=== PATIENT | male | born 1955 | race Caucasian/White ===

== ENCOUNTER 2017-02-27 15:19 | Outpatient (CLI) | payer MEDICARE, OTHER ==
--- NOTE | 2017-02-27 18:11 | MRI ---
LUMBAR SPINE MRI NONCONTRAST: Date: 02/27/17 COMPARISON: 07/15/14. INDICATION: Lumbar spondylosis. FINDINGS: Redemonstration of generalized heterogeneity of the regional marrow. No acute marrow edema. Disc spa ce heights are stable and relatively well preserved. No interval compression fracture or acute malal ignment of the lumbar spine. There remains no significant central canal or neural foraminal stenosis at the L1-2 or L2-3 levels. L3-4: Mild disc bulge redemonstrated without significant central canal or neural foraminal stenosis. L4-5: Mild narrowing of central canal on the basis of broad based disc osteophyte complex and bilateral mo derate facet hypertrophy. No significant foraminal stenosis. L5-S1: Small central disc protrusion effaces the ventral thecal sac without high grade central canal stenos is. The neural foramina remain patent. Moderate bilateral facet osteoarthritis is redemonstrated. 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 There is termination of conus medullaris at the L1-2 level. Partially imaged punctate T2 hyperintensity of the hepatic parenchyma is incompletely assessed. IMPRESSION: Grossly stable exam. POS: [facility]
== END 2017-02-27 15:20 | disposition home or self-care (01) ==
LOC: TBSIIMAG 15:19
PROVIDERS: ATTEND Psychiatry & Neurology Neurology
DX: M47.816 Spondylosis without myelopathy or radiculopathy, lumbar region (principal); R20.0 Anesthesia of skin; R29.898 Other symptoms and signs involving the musculoskeletal system
CPT/HCPCS: 72148

== ENCOUNTER 2017-05-01 13:57 | Outpatient (CLI) | payer MEDICARE, OTHER ==
--- NOTE | 2017-05-01 14:35 | RAD ---
RIGHT KNEE 4 VIEWS: HISTORY: Right knee pain. FINDINGS: There are mild degenerative changes. No fracture dislocation or bony destruction is seen. POS: [facility]
--- NOTE | 2017-05-01 14:36 | RAD ---
RIGHT HIP 2 VIEWS: HISTORY: Right hip pain. FINDINGS/IMPRESSION: There are degenerative changes in the right hip joint. No fracture, dislocation, or bone destruction is identified. POS: [facility]
--- NOTE | 2017-05-01 14:38 | RAD ---
LEFT HIP: Indication: Hip pain, knee pain. FINDINGS: There is no evidence of fracture or dislocation. Mild osteoarthritis of the left hip is seen. There a re metallic clips overlying the pelvic soft tissues. IMPRESSION: Mild left hip joint osteoarthritis without acute abnormality evident. POS: [facility]
--- NOTE | 2017-05-01 14:39 | RAD ---
LEFT KNEE FOUR VIEWS: History: Left knee pain. FINDINGS/IMPRESSION: Mild degenerative changes are present. No fracture, dislocation, or bony destruction is identified. POS: [facility]
== END 2017-05-01 13:58 | disposition home or self-care (01) ==
LOC: TBSIIMAG 13:57
PROVIDERS: ATTEND Psychiatry & Neurology Neurology
DX: M25.561 Pain in right knee (principal); M25.562 Pain in left knee; M25.551 Pain in right hip; M25.552 Pain in left hip; M16.12 Unilateral primary osteoarthritis, left hip

== ENCOUNTER 2017-08-25 09:45 | Outpatient (CLI) | payer MEDICARE, OTHER ==
[~2017-08-25 09:45] MED LIST: Gadobenate Dimeglumine 529 MG/1 ML (20ML VIAL) ONE
--- NOTE | 2017-08-25 13:44 | MRI ---
MRI BRAIN AND ORBITS WITH AND WITHOUT CONTRAST: DATE: 08/25/17. HISTORY: A 62-year-old male with diplopia, H53.2. 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 TECHNIQUE: Multiple sequences obtained in axial, sagittal, and coronal planes; pre and post IV injection of gado linium-based contrast agent: 19 mL of MultiHance. In addition to whole brain sequences, thin slices were obtained through the orbits in the coronal and axial planes. FINDINGS: The ventricles are normal in size and configuration. There is no major intraaxial signal abnormality , restricted diffusion, abnormal intraaxial enhancement, mass, midline shift or any other mass effect , recent intraaxial hemorrhage, or extraaxial fluid collection. The optic chiasm is normal. There i s no suprasellar mass. Cavernous sinus and orbital apices are normal. The bilateral extraocular mus cles are symmetrically normal. There is no intraorbital mass. No abnormal signal or enhancement of the optic nerves. The clivus has normal bone marrow signal. There is no abnormal enhancement or mas s involving the cisternal segments of the 6th and 3rd cranial nerves. There is no lesion identified in the kathryn or midbrain. Incidentally, the sella turcica is atypically shallow. The pituitary gland appears unremarkable. IMPRESSION: Normal. maged[] POS: [facility]
== END 2017-08-25 09:46 | disposition home or self-care (01) ==
LOC: SCSMRI 09:45
DX: H53.2 Diplopia (principal)
CPT/HCPCS: 70553; 82565; A9579

== ENCOUNTER 2017-09-18 08:47 | Outpatient (CLI) | payer MEDICARE, OTHER ==
--- NOTE | 2017-09-18 10:01 | CT ---
CT THORAX WITH IV CONTRAST: Date: 09-18-17 History: Left sided anterior chest pain and shortness of breath. Diplopia. Idiopathic progressing veronica ropathy. Evaluate for TB versus sarcoidosis. Comparison: None available. FINDINGS: There is evidence of prior granulomatous disease with calcified subcarinal and right as well as right hilar lymph nodes with calcified granuloma at the right lung base and calcified granulomata seen in the liver and spleen. No noncalcified pulmonary nodule or mass is seen in the lungs bilaterally. There is no evidence of ly mphadenopathy. The thoracic aorta is normal in caliber without evidence of an aortic dissection. No pleural effusion is seen. There is a small hemangioma seen in the T10 vertebral body with scattere d mild degenerative changes in the thoracic spine. IMPRESSION: 1. No acute findings are seen in the chest. 2. Evidence of prior granulomatous disease including prominent calcified right hilar lymph node. POS: [facility]
== END 2017-09-18 08:48 | disposition home or self-care (01) ==
LOC: CT 08:47
PROVIDERS: ATTEND Psychiatry & Neurology Neurology
DX: H53.2 Diplopia (principal); G60.3 Idiopathic progressive neuropathy; I89.8 Other specified noninfective disorders of lymphatic vessels and lymph nodes
CPT/HCPCS: 71260; 82565

== ENCOUNTER 2024-12-29 12:21 | Outpatient (CLI) | payer OTHER ==
[2024-12-29 14:09] LABS: #Basophils Less than 0.03 10x3/uL (0.0-0.2); #Eosinophils 0.11 10x3/uL (0.0-0.7); #Monocytes 0.57 10x3/uL (0.11-0.59); #Neutrophils 3.82 10x3/uL (1.40-6.50); %Basophils 0.3 % (0.0-1.0); %Eosinophils 1.8 % (0.0-10.0); %Lymphocytes 27.4 % (21.0-51.0); %Monocytes 9.1 % (0.0-10.0); %Neutrophils 61.1 % (42.0-75.0); Hematocrit 53.1 % (42.0-52.0); Hemoglobin 18.1 g/dL (14.0-18.0); Mean Corpuscular Hemoglobin 30.1 pg (27.0-31.0); Mean Corpuscular Volume 88.2 fL (78.0-98.0); Platelet Count 244 10x3/uL (130-400); Red Blood Cell (RBC) Count 6.02 mill/uL (4.70-6.10); White Blood Cell (WBC) Count 6.25 10x3/uL (4.8-10.8)
[2024-12-29 14:26] LABS: Anion Gap 19 mmol/L (10-20); BUN (Urea Nitrogen) 23 mg/dL (8.4-25.7); Calc. Creatinine Clearance 0 mL/min (70-130); Calcium 9.5 mg/dL (7.8-10.44); Carbon Dioxide 26 mmol/L (23-31); Chloride 97 mmol/L (98-107); Glucose 143 mg/dL (80-115); INR-International Normal Ratio 1.0; Potassium 3.2 mmol/L (3.5-5.1); Prothrombin Time 12.9 sec (12.0-14.7); Sodium 139 mmol/L (136-145)
[2024-12-29 14:53] LABS: PTT 32.8 sec (22.9-36.1)
== END 2024-12-29 12:22 | disposition home or self-care (01) ==
LOC: LABBT 12:21
PROVIDERS: ATTEND Urology
DX: Z01.818 Encounter for other preprocedural examination (principal); N48.1 Balanitis
CPT/HCPCS: 80048; 85025; 85610; 85730; 93005; 93010

== ENCOUNTER 2025-01-03 07:38 | Day surgery (SDC) | payer OTHER ==
[2024-12-29 12:43] VITALS: BMI 31.9
[2025-01-03] MEDS ORDERED: PROPOFOL 20 ML ONE (08:27)
[2025-01-03] MEDS ORDERED: fentaNYL PF 100 MCG/2 ML SYRINGE ONE (08:27)
[2025-01-03] MEDS ORDERED: Lidocaine 1% PF 5 ML VIAL ONE (08:29)
[2025-01-03] MEDS ORDERED: Bupivacaine 0.25% HCL 30 ML VIAL ONE (09:34)
[2025-01-03] MEDS ORDERED: Bacitracin Zinc Ointment 30 gm TUBE ONE (09:34)
[2025-01-03] MEDS ORDERED: Famotidine/PF 20 mg/2ml Vial ONE (09:37)
[2025-01-03] MEDS ORDERED: CEFAZOLIN 2 GM VIAL ONE (09:52)
[2025-01-03] MEDS ORDERED: Glycopyrrolate 0.2 MG/ML 5 ML SYRINGE ONE (10:05)
[2025-01-03] MEDS ORDERED: PHENYLEPHRINE-NS 100 MCG/ML 10 ML SYRINGE ONE (10:11)
[2025-01-03] MEDS ORDERED: Ondansetron PF 4 MG/2 ML Vial ONE (10:43)
== END 2025-01-03 13:01 | disposition home or self-care (01) ==
LOC: SDC 07:38
PROVIDERS: ATTEND Urology
PROC: 0VTTXZZ Resection of Prepuce, External Approach (ICD-10-PCS; principal; 2025-01-03)
DX: N48.1 Balanitis (principal); I10 Essential (primary) hypertension; E11.9 Type 2 diabetes mellitus without complications; Z88.2 Allergy status to sulfonamides
CPT/HCPCS: 88304; J0665; J1100; J1308; J2405; J2704